=== PATIENT | female | born 1930 | race African-American/Black ===

== ENCOUNTER 2019-02-22 19:17 | Emergency (ER) | payer OTHER ==
[~2019-02-22] VITALS: Ht 167.6 cm; Wt 76.2 kg
[2019-02-22] MEDS ORDERED: DOXYCYCLINE 10100 MG PO (20:47)
[2019-02-22] MEDS ORDERED: NEOMYC-POLYM-DEX5 ML OPHTHALMIC (20:47)
[2019-02-22 21:10] VITALS: BP 174/99
== END 2019-02-22 21:10 ==
LOC: ER 19:17
DX: H10.9 Unspecified conjunctivitis (principal); J18.9 Pneumonia, unspecified organism